=== PATIENT | male | born 1975 | race Caucasian/White ===

== ENCOUNTER 2017-12-20 07:43 | Emergency (ER) | payer OTHER, BC ==
[~2017-12-20] VITALS: Ht 188 cm; Wt 115.7 kg
[2017-12-20] MEDS ORDERED: TRIAZOLAM0.25 MG PO (07:55)
[2017-12-20] MEDS ORDERED: AMOXICILLIN500 MG PO (07:55)
== END 2017-12-20 08:06 | disposition home or self-care (01) ==
LOC: ED 07:43
DX: S61.411A Laceration without foreign body of right hand, initial encounter (principal); Z23 Encounter for immunization; W26.8XXA Contact with other sharp object(s), not elsewhere classified, initial encounter
CPT/HCPCS: 90471; 90715; 99282

== ENCOUNTER 2021-02-27 11:13 | Emergency (ER) | payer BC ==
[~2021-02-27] VITALS: Ht 188 cm; Wt 117.9 kg
[~2021-02-27 11:13] MED LIST: AMOXICILLIN500 MG PO; TRIAZOLAM0.25 MG PO
== END 2021-02-27 14:10 | disposition home or self-care (01) ==
LOC: ED 11:13
DX: S61.212A Laceration without foreign body of right middle finger without damage to nail, initial encounter (principal); W26.8XXA Contact with other sharp object(s), not elsewhere classified, initial encounter; K21.9 Gastro-esophageal reflux disease without esophagitis; Z88.6 Allergy status to analgesic agent
CPT/HCPCS: 99282

== ENCOUNTER 2025-01-12 10:01 | Day surgery (SDC) | payer BC ==
[~2025-01-12] VITALS: Ht 188 cm; Wt 127.3 kg
[~2025-01-12 10:01] MED LIST changes: +ASHWAGANDHA300 MG PO; +IBLOOD GLUCOSE TEST STRIP 1 EA TEST VI PRN; +LACTAID3000 UNI1 PO; +LACTATED RINGER'S 1,000 ML IV SCH; +LIDOCAINE HCL 1% 5 ML SDV INJ ONE; +MIDAZOLAM HCL 5 MG/5 ML VIAL IV PRN; +TURMERIC500 M3 PO; +VITAMIN D325 MCG PO; +fentaNYL citrate 100 MCG/2 ML VIAL IV PRN
[2025-01-12 10:17] VITALS: BP 132/68
--- NOTE | 2025-01-12 11:20 | NUR ---
1120 UPDATED PT ON WAIT TIME. PT UNDERSTANDING AT THIS TIME. PT IN BED WATCHING TV. CALL LIGHT WITHIN REACH, BED LOW AND LOCKED.
[2025-01-12] MEDS ORDERED: fentaNYL citrate 100 MCG/2 ML VIAL ONE (12:33)
[2025-01-12] MEDS ORDERED: MIDAZOLAM HCL 5 MG/5 ML VIAL ONE (12:33)
[2025-01-12] MEDS ORDERED: LIDOCAINE 2% VISCOUS 11 ML SYR ONE (12:51)
--- NOTE | 2025-01-12 13:35 | NUR ---
01/12/25 1335 Aniyah Valerio 1330: PT ARRIVES TO PACU, DROWSY, BUT FREQUENTLY WAKES HIMSELF UP. NO C/O PAIN.
[2025-01-12 14:48] VITALS: BP 108/56
--- NOTE | 2025-01-12 15:01 | NUR ---
1445 PT ARRIVED TO DAY SURGERY FROM PACU VIA STREACHER. PT LAYING ON RIGHT SIDE. PT DIAPHORETIC DUE TO PAIN. PT REPORTS 4/10 WHEN NOT MOVING PT REPORTS IT FEELS LIKE GAS PAIN. PT STATES HE HAS BEEN ABLE TO PASS SOME GAS BUT NOT MUCH. PT STATES HE MAY HAVE TO URINATE AGAIN, URINAL GIVEN TO PT. 1500 PT SITTING UPRIGHT, PT HAS CALL LIGHT AND WATER WITHIN REACH. PT UNDERSTANDS THAT IF PAIN WORSENS OR GETS BETTER TO USE CALL LIGHT TO ALERT RN. GONE OVER DIFFERENT POSITONS IN BED TO HELP ALLEVIATE GAS PAINS.
--- NOTE | 2025-01-12 15:43 | NUR ---
1440 SPOKE WITH PT, PT RESTING ON RIGHT SIDE. PT STATES HE HAS BEEN ABLE TO PASS GAS AND PAIN IS SLIGHTLY BETTER. PT WAS ABLE TO PASS GAS WHILE RN WAS IN ROOM. PT HAS CALL LIGHT WITHININ REACH.
[2025-01-12 16:14] VITALS: BP 133/74
--- NOTE | 2025-01-12 16:20 | NUR ---
1550 HOURLY ROUNDING DONE WITH PT. VITALS TAKEN. IV ASSESSED. PT REPORTS PASSING GAS AND PAIN HAS DECREASED. PT REPORTS 3/10 TOLERABLE PAIN. DISCHARGE INFORMATION GONE OVER WITH PT. NO QUESTIONS AT THIS TIME. PT HAS TOLERATED PO FLUIDS. 1553 PT ABLE TO AMBULATE THROUGH ROOM. IV DISCONTINUED FOR DISCHARGE. PT GETTING DRESSED ON OWN. 1600 PT IS DRESSED AND READY. 1605 PT DISCHARGED FROM DAY SURGERY VIA WHEELCHAIR TO THE FRONT OF THE HOSPITAL TO PT'S PARENTS CAR.
--- NOTE | 2025-01-13 08:21 | OR ---
[facility] [address] [place], [place] [address] Signed DATE OF OPERATION: 01/12/2025 SURGEON: Messi Aguayo MD PREOPERATIVE DIAGNOSES: 1. Colon screening. 2. Family history of colon cancer (mother) .. POSTOPERATIVE DIAGNOSIS: Polyps x5. PROCEDURE: Total colonoscopy to cecum with cold snare polypectomy x1 and cold morcellation polypectomy x4. ANESTHESIA: Intravenous sedation; fentanyl 200 mcg and Versed 6 mg. INDICATION: This 49-year-old white man is a patient of Dr. Loulou Neal. He has family history of colon cancer in his mother. He has never had colonoscopy in the past. He is admitted to undergo colonoscopy for screening. He understands the risk of bleeding, infection, and perforation. FINDINGS: The prep was adequate. Complete colonoscopy was undertaken of the cecum with full intubation of the cecum. He did seem to have some tolerance to medications, though was comfortable throughout overall. He was noted to have a polyp at the right transverse colon as well as a somewhat larger but less than 1 cm polyp of the proximal descending colon and three small polyps in aggregate in the rectosigmoid, all were resected. DESCRIPTION OF PROCEDURE: The patient was brought to the endoscopy suite and placed in the lateral decubitus position, given intravenous sedation to the point of slurred speech and nystagmus. Digital rectal examination was normal. An Olympus video colonoscope was passed in the rectum and manipulated throughout the colon. Additional sedation was given as needed. Ultimately, the cecum was fully Electronically Signed By: MESSI AGUAYO MD 01/13/25 0821 PATIENT NAME: BECCA PEÑALOZA OPERATIVE REPORT DATE OF : 71 REPORT #: [id number] PHYSICIAN: MESSI AGUAYO MD PCP: LOULOU NEAL MD REPORT IS CONFIDENTIAL AND NOT TO BE RELEASED WITHOUT AUTHORIZATION [facility] [address] [place], [place] [address] Signed intubated. Irrigation was undertaken. Scope was carefully withdrawn. In the proximal transverse colon, a small polyp was noted, this was excised with cold morcellation technique. Further withdrawal identified a somewhat larger slightly pedunculated polyp of the proximal descending colon which was excised with cold snare technique. Hemoclips were applied as there was some persistent oozing of blood. Further withdrawal showed three small polyps in aggregate in the rectosigmoid, probably hyperplastic, all excised with cold morcellation technique. Retroflexed view of the rectum confirmed internal hemorrhoidal changes as did careful withdrawal of the scope through the anal canal. The scope was removed and the patient was taken to the recovery room in good condition. CONCLUDING DIAGNOSIS: Polyps x5. PLAN: Recommend repeat colonoscopy in 5 years, sooner if symptoms should develop. He will return to the ongoing care of Loulou Neal. MD MALACHI Hampton/AKBAR /[id number] cc: Loulou Neal MD Copies: LOULOU NEAL DMD ~ Electronically Signed By: MESSI AGUAYO MD 01/13/25 0821 PATIENT NAME: BECCA PEÑALOZA CRISTINESHANA OPERATIVE REPORT DATE OF : 71 REPORT #: [id number] PHYSICIAN: MESSI AGUAYO MD PCP: LOULOU NEAL MD REPORT IS CONFIDENTIAL AND NOT TO BE RELEASED WITHOUT AUTHORIZATION
--- NOTE | 2025-01-16 10:44 | PATH ---
[facility] [address] [facility] [place], [place] [address] Signed SPECIMEN(S): A TRANSVERSE COLON POLYP SPECIMEN(S): B PROXIMAL DESCENDING COLON POLYP SPECIMEN(S): C SIGMOID POLYP SPECIMEN SOURCE: A. TRANSVERSE COLON POLYP B. PROXIMAL DESCENDING COLON POLYP C. SIGMOID POLYP CLINICAL HISTORY: Screening, family history of colon CA FINAL PATHOLOGIC DIAGNOSIS: A. Colon, transverse, polypectomy: - Tubular adenoma B. Colon, proximal descending, polypectomy: - Tubular adenoma C. Colon, sigmoid, polypectomy: - Hyperplastic polyp BRP MICROSCOPIC EXAMINATION: Histologic sections of all submitted blocks are examined by light microscopy. These findings, together with the gross examination, support the pathologic diagnosis. GROSS DESCRIPTION: A. The specimen, labeled and designated "Dowd, W, transverse colon polyp," is received in formalin and consists of one desai soft tissue fragment, 0.3 cm. Entirely submitted in (A1). B. The specimen, labeled and designated "Dowd, W, proximal descending colon polyp," is received in formalin and consists of one desai soft tissue fragment, 0.8 cm. Entirely submitted in (B1). C. The specimen, labeled and designated "Dowd, W, sigmoid polyp," is received in formalin and consists of three desai soft tissue fragments, ranging from 0.1-0.5 cm. Entirely submitted in (C1). AB (under the direct supervision of a pathologist) The Gross Description was prepared using a voice recognition system. The report was reviewed for accuracy; however, sound-alike word errors, addition and/or deletions may occur. If there is any question about this report, please contact Client Services. PATIENT NAME: BECCA DOWD PATHOLOGY DATE OF : 71 REPORT #: [id number] PHYSICIAN: CHEKO CARRILLO PCP: LOULOU NEAL MD REPORT IS CONFIDENTIAL AND NOT TO BE RELEASED WITHOUT AUTHORIZATION [facility] [address] [place], [place] [address] Signed ADDITIONAL NOTES: Immunohistochemical and/or in situ hybridization studies if performed in this case included appropriate positive controls that reacted as expected. This test was developed and its performance characteristics determined by [facility]. It has not been cleared or approved by the U.S. Food and Drug Administration. The FDA has determined that such clearance or approval is not necessary. This test is used for clinical purposes. It should not be regarded as investigational or for research. [facility] is certified under the Clinical Laboratory Improvement Amendments of 1988 (CLIA) as qualified to perform high complexity clinical laboratory testing. PERFORMING LABORATORY: Technical component was performed by [facility], [address] [place] [address] (CLIA# [id number]). Professional interpretation was performed by [facility], [address] [place] [address] (CLIA#: [id number]). Diagnostician: Timo Goncalves MD Pathologist Electronically Signed 01/16/2025 Copies: ~ PATIENT NAME: BECCA DOWD PATHOLOGY DATE OF : 71 REPORT #: [id number] PHYSICIAN: CHEKO CARRILLO PCP: LOULOU NEAL MD REPORT IS CONFIDENTIAL AND NOT TO BE RELEASED WITHOUT AUTHORIZATION
== END 2025-01-12 16:05 | disposition home or self-care (01) ==
LOC: OPS 10:01 → DS 10:09 → OPS 11:00 → DS 13:00 → OPS 16:05
PROVIDERS: ATTEND Surgery
PROC: 0DBL8ZZ Excision of Transverse Colon, Via Natural or Artificial Opening Endoscopic (ICD-10-PCS; 2025-01-12)
PROC: 0DBN8ZZ Excision of Sigmoid Colon, Via Natural or Artificial Opening Endoscopic (ICD-10-PCS; 2025-01-12)
PROC: 0DBG8ZZ Excision of Left Large Intestine, Via Natural or Artificial Opening Endoscopic (ICD-10-PCS; principal; 2025-01-12 11:00)
DX: Z12.11 Encounter for screening for malignant neoplasm of colon (principal); D12.3 Benign neoplasm of transverse colon; D12.4 Benign neoplasm of descending colon; K63.5 Polyp of colon; Z80.0 Family history of malignant neoplasm of digestive organs; Z88.5 Allergy status to narcotic agent
CPT/HCPCS: 99153; G0500; J2250; J3010; J3490; J7121